=== PATIENT | female | born 2000 | race Caucasian/White ===

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

== ENCOUNTER 2023-04-28 09:18 | Inpatient (IN) | payer MEDICAID, OTHER ==
[~2023-04-28] VITALS: Ht 162.6 cm; Wt 69.5 kg
[~2023-04-28 09:18] MED LIST: MEDR150I13 IM; PROP60CA PO
[2023-04-28] MEDS ORDERED: MED REC IN PROGRESS XX SCH (09:35)
[2023-04-28 10:21] LABS: HEMATOCRIT 46.4 % (36.0-47.0); HEMOGLOBIN 15.7 g/dl (12.0-15.5); MEAN CORPUSCULAR HEMOGLOBIN 30.3 pg (27.0-33.0); MEAN CORPUSCULAR HGB CONC 33.8 g/dl (32.0-36.5); MEAN CORPUSCULAR VOLUME 89.4 fl (80.0-96.0); PLATELET COUNT, AUTOMATED 330 10^3/uL (150-450); RED BLOOD COUNT 5.19 10^6/uL (4.00-5.40); WHITE BLOOD COUNT 6.5 10^3/uL (4.0-10.0)
[2023-04-28 10:47] LABS: AMPHETAMINES LEVEL URINE NEGATIVE (NEGATIVE); BARBITURATES URINE NEGATIVE (NEGATIVE); BENZODIAZEPINES URINE NEGATIVE (NEGATIVE); CANNABINOIDS URINE NEGATIVE (NEGATIVE); COCAINE METABOLITE URINE NEGATIVE (NEGATIVE); METHADONE URINE NEGATIVE (NEGATIVE); OPIATES URINE NEGATIVE (NEGATIVE); PHENCYCLIDINE URINE NEGATIVE (NEGATIVE)
[2023-04-28 10:50] LABS: ETHYL ALCOHOL (ETHANOL) 0.004 % (0.000-0.010)
[2023-04-28 10:51] LABS: ALBUMIN 4.4 G/DL (3.2-5.2); ALKALINE PHOSPHATASE 155 U/L (46-116); ALT/SGPT 26 U/L (7.0-40); AST/SGOT 20 U/L (<34); BILIRUBIN,DIRECT 0.2 MG/DL (<0.4); BILIRUBIN,TOTAL 0.5 MG/DL (0.3-1.2); BLOOD UREA NITROGEN 8 MG/DL (9-23); CALCIUM LEVEL 9.6 MG/DL (8.5-10.1); CARBON DIOXIDE LEVEL 20 MMOL/L (20-31); CHLORIDE LEVEL 111 MMOL/L (98-107); CREATININE FOR GFR 0.73 MG/DL (0.55-1.30); GLOMERULAR FILTRATION RATE > 60.0 (>60); GLUCOSE, FASTING 79 MG/DL (60-100); POTASSIUM SERUM 4.1 MMOL/L (3.5-5.1); SALICYLATE LEVEL < 3.0 MG/DL (<30); SODIUM LEVEL 143 MMOL/L (136-145)
[2023-04-28 10:53] LABS: THYROID STIMULATING HORMONE 1.336 uIU/ML (0.55-4.78)
[2023-04-28 11:16] LABS: HCG, SERUM QUALITATIVE NEGATIVE (NEGATIVE)
[2023-04-28] MEDS ORDERED: traZODone 50 MG TAB PO PRN (12:20)
[2023-04-28] MEDS ORDERED: MOM 30ML SUSPENSION UDC PO PRN (12:20)
[2023-04-28] MEDS ORDERED: MAALOX 30 ML SUSP *UDC PO PRN (12:20)
[2023-04-28] MEDS ORDERED: ACETAMINOPHEN TAB 650MG DOSE (2X325MG) PO PRN (12:20)
[2023-04-28] MEDS ORDERED: diphenhydrAMINE 25MG CAP PO PRN (12:20)
[2023-04-28] MEDS ORDERED: IBUPROFEN 400MG TAB PO PRN (12:20)
[2023-04-28] MEDS ORDERED: FLUTISP NARES (12:59)
[2023-04-28] MEDS ORDERED: HOME MED LIST COMPLETE! XX SCH (13:05)
[2023-04-28 16:07] VITALS: BP 130/83; TEMP 98.9; O2SAT 100
[2023-04-29 16:30] VITALS: BP 125/74; TEMP 98.1; O2SAT 99
[2023-04-30 06:33] VITALS: BP 112/65; TEMP 98.4; O2SAT 100
[2023-04-30 16:24] VITALS: BP 125/97; TEMP 98.6; O2SAT 97
[2023-05-01 18:05] VITALS: BP 110/80; TEMP 97.6; O2SAT 97
[2023-05-02] MEDS: PROPRANOLOL 60MG LA CAP PO SCH (12:12)
[2023-05-02 16:05] VITALS: BP 113/63; TEMP 98.2; O2SAT 100
[2023-05-02] MEDS: FLUTICASONE PROP 0.05% NASAL SPRAY 16 GM (FLONASE) NARES SCH (21:08)
[2023-05-03] MEDS: FLUTICASONE PROP 0.05% NASAL SPRAY 16 GM (FLONASE) NARES SCH ×2 (08:55→21:24)
[2023-05-03] MEDS: PROPRANOLOL 60MG LA CAP PO SCH (08:55)
[2023-05-03 17:24] VITALS: BP 122/89; TEMP 97.6; O2SAT 95
[2023-05-04] MEDS: FLUTICASONE PROP 0.05% NASAL SPRAY 16 GM (FLONASE) NARES SCH ×2 (08:54→20:49)
[2023-05-04] MEDS: PROPRANOLOL 60MG LA CAP PO SCH (08:54)
[2023-05-05] MEDS: FLUTICASONE PROP 0.05% NASAL SPRAY 16 GM (FLONASE) NARES SCH ×2 (09:28→21:00)
[2023-05-05] MEDS: PROPRANOLOL 60MG LA CAP PO SCH (09:28)
[2023-05-05 16:22] VITALS: BP 136/80; TEMP 97.8; O2SAT 100
[2023-05-06] MEDS: FLUTICASONE PROP 0.05% NASAL SPRAY 16 GM (FLONASE) NARES SCH (09:00)
[2023-05-06 09:01] VITALS: BP 118/66
[2023-05-06] MEDS: PROPRANOLOL 60MG LA CAP PO SCH (09:01)
[2023-05-06] MEDS ORDERED: PROP60CA PO (10:54)
== END 2023-05-06 12:13 | disposition home or self-care (01) | DRG 755 ==
LOC: M ED 09:18 → M ED INP 12:18 → M PSY 15:02
PROVIDERS: ADMIT Student in an Organized Health Care Education/Training Program; ATTEND Student in an Organized Health Care Education/Training Program
DX: F43.20 Adjustment disorder, unspecified (principal); F41.9 Anxiety disorder, unspecified; F63.81 Intermittent explosive disorder; F32.A Depression, unspecified; F79 Unspecified intellectual disabilities; R45.851 Suicidal ideations; Z79.899 Other long term (current) drug therapy; Z20.822 Contact with and (suspected) exposure to COVID-19

== ENCOUNTER → 2025-03-04 | Outpatient (CLI) | payer OTHER, MEDICAID ==
[~2025-03-04] MED LIST changes: +FLUTISP NARES; +PROHANCE 279.3MG/ML 15ML VIAL As Ordered ONE
== END ==
LOC: M RAD 14:12
PROVIDERS: ATTEND Nurse Practitioner Family
DX: G93.89 Other specified disorders of brain (principal); R90.89 Other abnormal findings on diagnostic imaging of central nervous system
CPT/HCPCS: 70553; A9576